=== PATIENT | male | born 1995 | race Caucasian/White ===

== ENCOUNTER 2018-08-16 16:25 | Emergency (ER) | payer BC, OTHER ==
[~2018-08-16] VITALS: Ht 172.7 cm; Wt 90.7 kg
--- OUTSIDE RECORDS SUMMARY | 2018-08-16 16:30 | XMS REPORT ---
Author Author VERNONTALI Organization [facility] Address [address] [place] [address] Care Team Providers Care Clinical Abstractor Name Role Phone ABBEPALLAVI FRIASA Unavailable PROBLEMS Type Condition ICD9-CM Code [id number] Code Onset Dates Condition Status SNOMED Code Problem Severe episode of recurrent major depressive disorder, without psychotic features F33.2 Active 13071489 Problem Unspecified mood [affective] disorder F39 Active [id number] ALLERGIES No Known Allergies ENCOUNTERS Encounter Location Date Diagnosis [facility] [id number] [place] [phone] Jul, [facility] [id number] [place] [phone] Apr, Severe episode of recurrent major depressive disorder, without psychotic features F33.2 [facility] [id number] [place] [phone] March, Severe episode of recurrent major depressive disorder, without psychotic features F33.2 [facility] [address] [place] [phone] [phone] March, Unspecified mood [affective] disorder F39 IMMUNIZATIONS No Known Immunizations SOCIAL HISTORY Never Assessed REASON FOR VISIT intake WB-MA PLAN OF CARE Activity Details Follow Up 6 Weeks, prn Reason: VITAL SIGNS Weight 250.7 lbs 2018-03-23 Temperature 98.2 degrees Fahrenheit 2018-03-23 Heart Rate 100 bpm 2018-03-23 Respiratory Rate 20 2018-03-23 Blood pressure systolic 128 mmHg 2018-03-23 Blood pressure diastolic 84 mmHg 2018-03-23 MEDICATIONS Medication Instructions Dosage Frequency Start Date End Date Duration Status Celexa 20 MG Orally Once a day 0.5 tablet daily for 2 weeks then take full tablet daily 24h March, 30 day(s) Active RESULTS No Results PROCEDURES No Known procedures INSTRUCTIONS MEDICATIONS ADMINISTERED No Known Medications
--- OUTSIDE RECORDS SUMMARY | 2018-08-16 16:30 | XMS REPORT ---
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 Active 33967583 Problem Unspecified mood [affective] disorder F39 Active [id number] ALLERGIES No Information ENCOUNTERS Encounter Location Date Diagnosis [facility] [id number] [place] [phone] Jul, [facility] [id number] [place] [address] [phone]- [phone] Apr, Severe episode of recurrent major depressive disorder, without psychotic features F33.2 [facility] [id number] [place] [phone] March, Severe episode of recurrent major depressive disorder, without psychotic features F33.2 [facility] [id number] [place] [address] 42575- [phone] March, Unspecified mood [affective] disorder F39 IMMUNIZATIONS No Known Immunizations SOCIAL HISTORY Never Assessed REASON FOR VISIT f/u WB-MA PLAN OF CARE Activity Details Follow Up 3 Months, prn Reason: VITAL SIGNS Height 73.1 in 2018-04-21 Weight 247.1 lbs 2018-04-21 Heart Rate 108 bpm 2018-04-21 Respiratory Rate 20 2018-04-21 BMI 32.51 kg/m2 2018-04-21 Blood pressure systolic 128 mmHg 2018-04-21 Blood pressure diastolic 90 mmHg 2018-04-21 MEDICATIONS Medication Instructions Dosage Frequency Start Date End Date Duration Status Erythromycin 5 MG/GM Active Celexa 20 MG Orally Once a day 1 tablet 24h March, 30 days Active RESULTS No Results PROCEDURES No Known procedures INSTRUCTIONS MEDICATIONS ADMINISTERED No Known Medications
--- OUTSIDE RECORDS SUMMARY | 2018-08-16 16:30 | XMS REPORT ---
Author Author VERNON TALI Organization [facility] Address [address] [place] [address] Care Team Providers Care Firer Tunnel Kiln Name Role Phone ABBERIKKI FRIASYLA Unavailable PROBLEMS Type Condition ICD9-CM Code [id number] Code Onset Dates Condition Status SNOMED Code Problem Severe episode of recurrent major depressive disorder, without psychotic features F33.2 Active [id number] Problem Unspecified mood [affective] disorder F39 Active [id number] ALLERGIES No Information ENCOUNTERS Encounter Location Date Diagnosis [facility] [address] [place] [address] [phone]- [phone] Oct, [facility] [id number] [place] [address] [phone]- [phone] 13 Jul, 2018 Severe episode of recurrent major depressive disorder, without psychotic features F33.2 [facility] [id number] [place] [address] [phone]- [phone] 14 Apr, 2018 Severe episode of recurrent major depressive disorder, without psychotic features F33.2 [id number] [place] [address]1829- [phone] March, Severe episode of recurrent major depressive disorder, without psychotic features F33.2 [facility] [id number] [place] [address] 38782- [phone] March, Unspecified mood [affective] disorder F39 IMMUNIZATIONS No Known Immunizations SOCIAL HISTORY Never Assessed REASON FOR VISIT f/u- AB/MA PLAN OF CARE Activity Details Follow Up October Reason: VITAL SIGNS Height 73.1 in 2018-07-21 Weight 246 lbs 2018-07-21 Heart Rate 110 bpm 2018-07-21 Respiratory Rate 20 2018-07-21 BMI 32.36 kg/m2 2018-07-21 Blood pressure systolic 136 mmHg 2018-07-21 Blood pressure diastolic 72 mmHg 2018-07-21 MEDICATIONS Medication Instructions Dosage Frequency Start Date End Date Duration Status Celexa 20 MG Orally Once a day 1.5 tablet 24h March, 30 days Active RESULTS No Results PROCEDURES No Known procedures INSTRUCTIONS MEDICATIONS ADMINISTERED No Known Medications
--- OUTSIDE RECORDS SUMMARY | 2018-08-16 16:30 | XMS REPORT ---
Author Author HOUSTON MIRAMONTES Organization [facility] Address [address] [place] [address] Care Team Providers Care Knockdown Man Name Role Phone HOUSTON MIRAMONTES Unavailable PROBLEMS Type Condition ICD9-CM Code [id number] Code Onset Dates Condition Status SNOMED Code Problem Severe episode of recurrent major depressive disorder, without psychotic features F33.2 Active 26286165 Problem Unspecified mood [affective] disorder F39 Active 62263429 ALLERGIES No Information ENCOUNTERS Encounter Location Date Diagnosis [facility] [address], [place] [address] Jul, [facility] [address] [place] [phone] Apr, Severe episode of recurrent major depressive disorder, without psychotic features F33.2 [facility] [address] [place] [address] [phone] March, Severe episode of recurrent major depressive disorder, without psychotic features F33.2 [facility] [address] [place] [address] March, Unspecified mood [affective] disorder F39 IMMUNIZATIONS No Known Immunizations SOCIAL HISTORY Never Assessed REASON FOR VISIT intake PLAN OF CARE Activity Details Follow Up next available Reason:depression and anxiety VITAL SIGNS MEDICATIONS Unknown Medications RESULTS No Results PROCEDURES Procedure Date Ordered Result Body Site Psych diagnostic evaluation, new patient March 10, 2018 INSTRUCTIONS MEDICATIONS ADMINISTERED No Known Medications
[2018-08-16] MEDS ORDERED: HYDROcodone/APAP 7.5 MG/325 MG (LORTAB, LORCET PLUS) TABLET PO ONE (16:48)
[2018-08-16] MEDS ORDERED: KETAMINE HCL 100 MG/ML 5 ML VIAL IM ONE (17:45)
[2018-08-16] MEDS ORDERED: LIDOCAINE 1% INJ 20 ML 20 ML VIAL INJ ONE (18:00)
[2018-08-16] MEDS ORDERED: MIDAZOLAM 5 MG/5 ML (VERSED) VIAL IVP ONE (18:15)
[2018-08-16 18:18] VITALS: BP 143/104
[2018-08-16 18:28] VITALS: BP 129/95
[2018-08-16 18:51] VITALS: BP 181/107
--- NOTE | 2018-08-16 19:10 | ED Upper Extremity ---
General Chief Complaint: General Problems/Pain Stated Complaint: RING STUCK ON L RING FINGER Nursing Triage Note: AMB TO ROOM HAS RING STUCK ON L RING FINGER WAS A [facility] UNABLE TO GET IT OFF. Nursing Sepsis Screen: No Definite Risk (SERAFIN MCKEON) History of Present Illness Date Seen by Provider: Aug 16, 2018 Time Seen by Provider: 16:30 Initial Comments 23-year-old male presents with a ring that is stuck on his fourth finger of left hand. He went to [facility] prior to arrival here, they attempted to remove it with dental floss with no success. At this point the patient believes the ring has been on his finger for approximately 3-3.5 hours. He is having significant pain in the finger. He reports that the ring used to fit his finger, and he gained weight and has not been able to wear it, he has lost 20 pounds and assumed he could fit in it again. He bought the ring on [employer] and thought it was [employer]. Onset: this afternoon Severity: moderate Pain/Injury Location: left 4th finger (Solid metal ring, at base of finger. ) Method of Injury: other (Ring stuck ) (SERAFIN MCKEON) Allergies and Home Medications Allergies Coded Allergies: No Known Drug Allergies (Unverified , 08/16/18) Patient Home Medication List Home Medication List Reviewed: Yes (SERAFIN MCKEON) Review of Systems Constitutional: no symptoms reported, see HPI Musculoskeletal: see HPI, other (Ring stuck to fourth finger left hand) (SERAFIN MCKEON) All Other Systems Reviewed Negative Unless Noted: Yes (SERAFIN MCKEON) Past Gknmlzh-Vlafkm-Lbghla Hx Past Med/Social Hx: Reviewed Nursing Past Med/Soc Hx (SERAFIN MCKEON) Patient Social History Alcohol Use: Occasionally Uses Recreational Drug Use: No Smoking Status: Current Everyday Smoker Recent Foreign Travel: No Contact w/Someone Who Travel: No Recent Infectious Disease Expo: No (SERAFIN MCKEON) Past Medical History Respiratory: No Cardiac: No Neurological: No Genitourinary: No Gastrointestinal: No Musculoskeletal: No Cancer: No Psychosocial: Yes Depression Integumentary: No (SERAFIN MCKEON) Physical Exam Vital Signs Vital Signs - First Documented 08/16/18 08/16/18 16:31 18:18 Temp 98.0 Pulse 90 Resp 18 B/P (MAP) 140/100 (113) Pulse Ox 100 O2 Delivery Nasal Cannula O2 Flow Rate 1.00 (KAREN GHOSH) Vital Signs Capillary Refill : Less Than 3 Seconds (LINDASERAFIN) Height, Weight, BMI Height: 5'8.00" Weight: 200lbs. oz. 90.556052cb; BMI Method:Estimated General Appearance: WD/WN, mild distress Cardiovascular: normal peripheral pulses, regular rate, rhythm Respiratory: chest non-tender, lungs clear, normal breath sounds Hand: Left (Fourth finger, Cap Refill 5 seconds), soft tissue tenderness, swelling Neurologic/Tendon: normal sensation, normal tendon functions, motor deficit ( Secondary to pain fourth finger left hand) Neurologic/Psychiatric: alert, normal mood/affect, oriented x 3 Skin: normal color, warm/dry (SERAFIN MCKEON) Procedures/Interventions Progress Steel ring on left hand ring finger. Ketamine was given for anxiolysis and pain control. The patient was awake and alert for the whole procedure. We placed a steel toolbox behind the ring between the patient's tissue and the ring and after doing a digital block with 1% lidocaine were used a dental tool with a marycarmen cut off blade and dripped saline over the ring and cut the ring and [address]. At no time was the patient's skin violated by the cut off blade. The patient tolerated procedure well. (KAREN GHOSH) Progress/Results/Core Measures Results/Orders Medications Given in ED Current Medications Medications Dose Ordered Sig/Eliel Route Start Time Stop Time Status Last Admin Dose Admin Acetaminophen/ Hydrocodone Bitart 1 ea STK-MED ONCE PO 08/16/18 16:48 08/16/18 16:53 DC 08/16/18 16:53 1 EA Ketamine HCl 300 mg ONCE ONCE IM 08/16/18 17:45 08/16/18 17:53 DC 08/16/18 18:14 300 MG Lidocaine HCl 20 ml ONCE ONCE INJ 08/16/18 18:00 08/16/18 18:01 DC 08/16/18 18:15 20 ML (KAREN GHOSH) Vital Signs/I&O 08/16/18 08/16/18 08/16/18 08/16/18 16:31 18:18 18:28 18:51 Temp 98.0 Pulse 90 119 86 92 Resp 18 20 18 18 B/P (MAP) 140/100 (113) 143/104 (117) 129/95 (106) 181/107 (131) Pulse Ox 100 98 98 98 O2 Delivery Nasal Cannula Nasal Cannula Nasal Cannula O2 Flow Rate 1.00 1.00 1.00 (KAREN GHOSH) Blood Pressure Mean: 131 Progress Progress Note : Time: 16:30 Progress Note Patient seen and evaluated. Attempted to cut the ring, no success. The patient believes the ring to be titanium. The titanium stone crusher operator was used on 5 attempts to try to crack the ring without success. Attempted to remove the ring with straining and 0 Vicryl, no success. Phoned Valdemar Campbell, from [employer], he offered to come evaluate the ring and see if he had equipment to cut it. Patient having increased pain in finger, Hydrocodone/APAP 7.5/500 mg po for pain. Patient assessment and treatments thus far, reviewed with Dr. Martinez, agreed with plans. 1700 Valdemar Jones evaluated the ring and equipment we had to remove it, attempted with ring cutter, did not make cut into ring. Recommended Marycarmen plated dremel. He will go to [employer] to obtain one. 1810 Ketamine 300 mg IM for pain. 1820 See Procedure note per Dr. Ghosh, for removal of ring. Ring successful cut in 2 places and removed. Patient tolerated well and had immediate improvement in pain and full ROM to left 4th finger. Tetanus vaccine. 1900 Patient has full active and passive ROM to left 4th finger. Resisted ROM V/ V. Patient denies any pain. 1929 left fourth finger cleaned with sterile water and Hibiclens. [place]on about equal ointment and Band-Aid applied. Patient more alert and answering questions appropriately 1999 discharge instructions and return precautions reviewed with the patient. All questions answered (SERAFIN MCKEON) Departure Impression Primary Impression: Tight ring on finger Disposition: HOME, SELF-CARE Condition: Improved Departure-Patient Inst. Decision time for Depature: 19:30 (SERAFIN MCKEON) Referrals: [facility] (PCP/Family) Primary Care Physician Patient Instructions: Common Finger Injuries (DC) Add. Discharge Instructions: Ice and elevate left ring finger as needed for pain. You may take Tylenol 650 mg alternating with ibuprofen 600 mg every 4 hours for pain. Clean the abrasion to the left ring finger with soap and water, apply triple antibiotic ointment and Band-Aid as needed. Follow-up with your primary care provider if symptoms are not improving or worsen. Return to emergency department for new injuries or concerns. All discharge instructions reviewed with patient and/or family. Voiced understanding. SERAFIN MCKEON Aug 16, 2018 19:10 KAREN GHOSH Aug 16, 2018 19:50
[2018-08-16] MEDS ORDERED: TETANUS,DIPTH,PERTUSS P/F (BOOSTRIX) 0.5 ML VIAL IM STA (20:20)
[2018-08-16 21:46] VITALS: BP 133/88
[2018-08-17] MEDS ORDERED: NS IV 1000 ML 1,000 ML ONE (09:16)
== END 2018-08-16 21:45 | disposition home or self-care (01) ==
LOC: ER 16:26
DX: S60.457A Superficial foreign body of left little finger, initial encounter (principal); F32.9 Major depressive disorder, single episode, unspecified; F17.200 Nicotine dependence, unspecified, uncomplicated; X58.XXXA Exposure to other specified factors, initial encounter
CPT/HCPCS: 90715; 99284